=== PATIENT | male | born 1995 | race Caucasian/White ===

== ENCOUNTER 2022-02-13 12:07 | Emergency (ER) | payer OTHER, SELFPAY ==
--- NOTE | 2022-02-13 12:09 | ED.URI ---
HPI - URI/Sore Throat General Chief Complaint: Upper Respiratory Infection Stated Complaint: covid positive, body aches Time Seen by Provider: 02/13/22 12:09 Source: patient and RN notes reviewed History of Present Illness HPI Narrative: Patient is a 26-year-old male who presents the urgent care with complaints of body aches. Patient states that 1 hour ago he tested positive at [employer] for COVID-19. Patient states his symptoms are gotten much better since yesterday and he was first symptomatic on with a sore throat, mild congestion and cough. Patient's not taken anything [id number] for his symptoms. States that he was concerned after reading [employer] about chest pain . Patient states he is having left side pain. Denies of any shortness of breath or difficulty taking a deep breath. Patient has not suffered from any fevers. No other acute complaints. No acute distress noted. Patient aware of the plan of care. Some parts of this dictation were generated by voice recognition software and may contain typographical and/or grammatical inaccuracies. Review of Systems Review of Systems: CONSTITUTIONAL: Denies fever, chills, or sweats. EYES: Denies visual changes, redness, or discharge. ENT: Denies rhinorrhea, congestion, sore throat, or otalgia. CARDIOVASCULAR: Denies chest pain, palpitations, or edema. RESPIRATORY: Denies cough or dyspnea. GASTROINTESTINAL: Denies abdominal pain, nausea, vomiting, or diarrhea. GENITOURINARY: Denies dysuria or hematuria. SKIN: Denies rash or itching. MUSCULOSKELETAL: Reports of body aches and left side pain NEUROLOGIC: Denies headache, numbness, or weakness. All other systems reviewed are negative, except as documented in HPI. PMFSH Comments At the time of my signature, I reviewed and agree with the nursing past medical, surgical, social, and family history. There is no relevant family history pertinent to the patient complaint. Exam Narrative: GENERAL: This is a well-nourished, well-developed patient, appears slightly fatigued HEAD: normocephalic, atraumatic. EYES: PERRL. Sclera clear/white. Vision is grossly intact. EARS: External ears normal, auditory canals clear and without drainage, TMs normal without perforation. Hearing grossly intact. NOSE: External nose normal with no obvious nasal discharge, nares without redness, clear rhinorrhea. THROAT: Mucous membranes moist, mild erythema noted posterior pharynx with moderate postnasal drainage. NECK: Neck supple, non-tender without lymphadenopathy, masses or thyromegaly. CARDIOVASCULAR: Regular rate and rhythm without murmurs, gallops, or rubs. RESPIRATORY: Clear to auscultation. Breath sounds equal bilaterally. No wheezes, rales, or rhonchi. SKIN: warm, intact with no suspicious lesions or rash, good texture and turgor. NEURO: awake, alert, and oriented to person, place and time. There were no obvious focal neurologic abnormalities. EXTREMITIES: No clubbing, cyanosis, or edema. Course Course Level of Care: Express Care Visit Vital Signs Vital signs: Vital Signs Temperature 99 F 02/13/22 12:17 Pulse Rate 82 02/13/22 12:17 Respiratory Rate 16 02/13/22 12:17 Blood Pressure 127/71 02/13/22 12:17 Pulse Oximetry 99 02/13/22 12:17 Temperature 99 F 02/13/22 12:17 Pulse Rate 82 02/13/22 12:17 Respiratory Rate 16 02/13/22 12:17 Blood Pressure 127/71 02/13/22 12:17 Pulse Oximetry 99 02/13/22 12:17 Reviewed MDM - URI/Sore Throat MDM Narrative Medical decision making narrative: Advised the patient to follow quarantine guidelines according to the CDC. Guidelines currently state that you need to quarantine for 5 days. It is inappropriate to leave your home or for any further activity or evaluation unless symptoms progress and need immediate medical attention. Anyone in the home is also considered positive if they are symptomatic and may follow-up at a local outpatient COVID testing site if necessary.
[2022-02-13 12:17] VITALS: BP 127/71; PULSE 82; RESP 16; TEMP 37.2; O2SAT 99
== END 2022-02-13 12:24 | disposition home or self-care (01) ==
PROVIDERS: Emergency Provider Nurse Practitioner Family
DX: U07.1 COVID-19 (principal)
CPT/HCPCS: 99211; G0463

== ENCOUNTER 2022-03-05 15:23 | Emergency (ER) | payer OTHER, SELFPAY ==
[2022-03-05 15:26] VITALS: BP 132/64; PULSE 77; RESP 20; TEMP 37.2; O2SAT 100
--- NOTE | 2022-03-05 15:33 | ED.EAR ---
HPI - Ear Problem General Chief complaint: Ear Stated complaint: FB L EAR Time Seen by Provider: 03/05/22 15:29 Source: patient Mode of arrival: ambulatory Limitations: no limitations History of Present Illness HPI Narrative: Patient presents today complaining of a foreign body to his left ear canal x4 days. Believes there is the tip of a Q-tip in his left ear. Denies any hearing difficulties. Denies pain or drainage. Related Data Home Medications Medication Instructions Recorded Confirmed No Home Medications 02/13/22 03/05/22 Allergies Allergy/AdvReac Type Severity Reaction Status Date / Time amoxicillin Allergy Unknown Verified 03/05/22 15:31 Review of Systems Review of Systems: CONSTITUTIONAL: Denies body aches, fever, chills, or sweats. EYES: Denies visual changes, redness, or discharge. ENT: Denies rhinorrhea, congestion, sore throat, or otalgia.+ Left ear foreign body CARDIOVASCULAR: Denies chest pain, palpitations, or edema. RESPIRATORY: Denies cough or dyspnea. GASTROINTESTINAL: Denies abdominal pain, nausea, vomiting, or diarrhea. GENITOURINARY: Denies dysuria or hematuria. SKIN: Denies rash, itching, or wounds. MUSCULOSKELETAL: Denies back pain, joint pain, or myalgia. NEUROLOGIC: Denies headache, numbness, tingling, or weakness. PSYCH: Denies depression or anxiety. PMFSH Comments At time of signature, I have reviewed and agree with nursing past medical, surgical, social and family history unless otherwise noted. Please see nursing chart for further information. There is no relevant family history pertinent to the presenting complaint Exam Narrative: GENERAL: Well-appearing, well-nourished, and in no acute distress. HEAD: Normocephalic, atraumatic. EYES: EOMI. No redness or drainage. Conjunctivae normal. ENT: Mucous membranes pink and moist. TMs normal bilaterally. No foreign body noted bilaterally. NECK: Normal AROM. CHEST: No respiratory distress. EXTREMITIES: Normal range of motion. No edema. SKIN: Warm, dry, no rash. Capillary refill normal. Normal skin turgor. NEURO: No focal deficits. Alert and oriented x3. Gait steady. PSYCH: Normal affect. No signs of depression or anxiety. Course Course Level of Care: Express Care Visit Vital Signs Vital signs: Vital Signs Temperature 99.0 F 03/05/22 15:26 Pulse Rate 77 03/05/22 15:26 Respiratory Rate 20 03/05/22 15:26 Blood Pressure 132/64 03/05/22 15:26 Pulse Oximetry 100 03/05/22 15:26 Oxygen Delivery Room Air 03/05/22 15:26 Temperature 99.0 F 03/05/22 15:26 Pulse Rate 77 03/05/22 15:26 Respiratory Rate 20 03/05/22 15:26 Blood Pressure 132/64 03/05/22 15:26 Pulse Oximetry 100 03/05/22 15:26 Oxygen Delivery Room Air 03/05/22 15:26 Reviewed. Pt has been instructed to follow up with his PCP regarding his elevated blood pressure today. Medical Decision Making Differential Diagnosis Differential Diagnosis: Foreign body, otitis media, otitis externa, worried well Vital Signs Vital Signs: Vital Signs Temperature 99.0 F 03/05/22 15:26 Pulse Rate 77 03/05/22 15:26 Respiratory Rate 20 03/05/22 15:26 Blood Pressure 132/64 03/05/22 15:26 Pulse Oximetry 100 03/05/22 15:26 Oxygen Delivery Room Air 03/05/22 15:26 Temperature 99.0 F 03/05/22 15:26 Pulse Rate 77 03/05/22 15:26 Respiratory Rate 20 03/05/22 15:26 Blood Pressure 132/64 03/05/22 15:26 Pulse Oximetry 100 03/05/22 15:26 Oxygen Delivery Room Air 03/05/22 15:26 Critical Care Time Critical Care Time Critical Care Time: No Discharge Plan Discharge Clinical Impression: Normal ear exam Patient Disposition: Home, Self-Care Condition: Stable Additional Instructions: No foreign body was noted in your ear today. Your eardrums appear normal as well. Prescriptions: No Action No Home Medications Follow-up/Referrals: PHYSICIAN,LAY BROTHER [Primary Care Provide
== END 2022-03-05 15:45 | disposition home or self-care (01) ==
PROVIDERS: Emergency Provider Nurse Practitioner
DX: Z71.1 Person with feared health complaint in whom no diagnosis is made (principal)
CPT/HCPCS: 99211; 99212; G0463

== ENCOUNTER 2023-05-29 09:50 | Emergency (ER) | payer OTHER, SELFPAY ==
[2023-05-29 09:58] VITALS: BP 117/82; PULSE 74; RESP 20; TEMP 36.4; O2SAT 97
--- NOTE | 2023-05-29 10:07 | ED.URI ---
HPI - URI/Sore Throat General Chief Complaint: Upper Respiratory Infection Stated Complaint: Cough Time Seen by Provider: 05/29/23 10:00 Source: patient Mode of arrival: ambulatory Limitations: no limitations History of Present Illness HPI Narrative: Patient is a 27-year-old male who presents with 3 weeks of productive cough. Patient states it started with cold-like symptoms and everything else has resolved other than the cough. Patient states he has tried everything [id number] with no relief. Denies cough keeping him up at night. Denies any fever, chills,, diarrhea. Does report of congestion intermittently. Related Data Allergies Allergy/AdvReac Type Severity Reaction Status Date / Time amoxicillin Allergy Unknown Verified 05/29/23 09:59 Review of Systems Review of Systems: All systems reviewed & are unremarkable except as noted in HPI and below Constitutional: Constitutional: Denies body ache(s), Denies chills, Denies fatigue, Denies fever(s), Denies headache(s), Denies malaise and Denies weakness Eyes: Eyes: Denies blurry vision, Denies itchy eyes and Denies loss of vision ENT: Denies otalgia, Denies headache(s), Reports nasal congestion, Denies sinus pain and Denies sore throat Cardiovascular: Cardiovascular: Denies chest pain, Denies irregular heart rhythm and Denies dyspnea Respiratory: Respiratory: Reports cough and Denies dyspnea Gastrointestinal: Gastrointestinal: Denies abdominal pain, Denies diarrhea, Denies nausea and Denies vomiting Musculoskeletal: Musculoskeletal: Denies back pain, Denies myalgias and Denies arthralgias Integumentary/Breasts: Skin/Breast: Denies pruritus and Denies rash Neurologic: Denies headache(s), Denies loss of vision and Denies weakness Psychiatric: Psychiatric: Reports no additional psychiatric complaints Endocrine: Endocrine: Denies fatigue Allergic/Immunologic: Allergic/Immunologic: Denies itchy eyes PMFSH Comments At time of signature, agree with nursing past medical, surgical, social and family history. There is no relevant family history pertinent to the presenting complaint. Exam Const: General: cooperative, healthy appearing, comfortable, no acute distress and well nourished Nutritional Appearance: well nourished Orientation/consciousness: patient oriented x3 Limitations: no limitations HENMT: Head: normal to inspection, normocephalic and atraumatic Ears: hearing grossly normal bilaterally, external ears normal, TM's normal bilaterally, EAC's normal and no periauricular adenopathy Face/Nose/Sinus: Normal external nose present, Abnormal mucous membranes and turbinates present erythematous bilateral and diffuse, normal facial exam, sinuses nontender and face symmetric Face and sinus: normal facial exam, sinuses nontender and face symmetric Mouth: Yes Normal oral and palatal mucosa present, Yes lip normal, Yes tongue normal, Yes Normal salivary glands and ducts present, Yes oropharynx normal and Yes moist mucous membranes Teeth and gingiva: dentition normal Throat: posterior oropharynx normal, tonsils normal and uvula midline Eyes: General: appearance normal, both eyes and all related structures Alignment and Position: alignment normal and position normal Periorbital: periorbital findings normal Eyelids: eyelids normal Pupils: Equal, round and reactive pupils present Neck: Neck: normal visual inspection, full ROM, no lymphadenopathy and supple Chest: Chest palpation & inspection: normal inspection of the chest and normal palpation of entire chest wall Resp: Effort & Inspection: normal respiratory effort and able to speak in complete sentences Auscultation: no crackles, no rales, no rhonchi and wheezes scattered wheezes Cardio: Rate: regular rate Rhythm: regular rhythm Heart sounds: S1 normal heart sound present and S2 normal heart sound present GI: Inspection: normal to inspection Skin: General skin exam: normal color and no rashes or lesions noted
== END 2023-05-29 10:13 | disposition home or self-care (01) ==
PROVIDERS: Emergency Provider Nurse Practitioner Family
DX: J40 Bronchitis, not specified as acute or chronic (principal)
CPT/HCPCS: 99213; G0463

== ENCOUNTER 2024-02-02 18:17 | Emergency (ER) | payer OTHER, SELFPAY ==
[2024-02-02 18:25] VITALS: BP 134/74; PULSE 90; RESP 18; TEMP 36.6; O2SAT 100
--- NOTE | 2024-02-02 18:44 | ED.SKABFB ---
HPI - Skin/Abscess/Foreign Bdy General Chief complaint: Skin/Abscess/Foreign Body Stated complaint: Rash Time Seen by Provider: 02/02/24 18:28 Source: patient and RN notes reviewed Mode of arrival: ambulatory Limitations: no limitations History of Present Illness HPI narrative: Patient presents today complaining of a one-week history of rash that started in his low back and bilateral axilla that has now spread to his bilateral flanks and bilateral thighs. It is severely pruritic. States he has been working outside and sweating since onset. No [id number] treatment prior to arrival. Related Data Allergies Allergy/AdvReac Type Severity Reaction Status Date / Time amoxicillin Allergy Hives Verified 02/02/24 18:31 Review of Systems Review of Systems: CONSTITUTIONAL: Denies body aches, fever, chills, or sweats. EYES: Denies visual changes, redness, or discharge. ENT: Denies rhinorrhea, congestion, sore throat, or otalgia. CARDIOVASCULAR: Denies chest pain, palpitations, or edema. RESPIRATORY: Denies cough or dyspnea. GASTROINTESTINAL: Denies abdominal pain, nausea, vomiting, or diarrhea. GENITOURINARY: Denies dysuria or hematuria. SKIN: + pruritic rash MUSCULOSKELETAL: Denies back pain, joint pain, or myalgia. NEUROLOGIC: Denies headache, numbness, tingling, or weakness. PSYCH: Denies depression or anxiety. PMFSH Comments At time of signature, I have reviewed and agree with nursing past medical, surgical, social and family history unless otherwise noted. Please see nursing chart for further information. There is no relevant family history pertinent to the presenting complaint Exam Narrative: GENERAL: Well-appearing, well-nourished, and in no acute distress. HEAD: Normocephalic, atraumatic. EYES: EOMI. No redness or drainage. Conjunctivae normal. ENT: Mucous membranes pink and moist. NECK: Normal AROM. CHEST: No respiratory distress. EXTREMITIES: Normal range of motion. No edema. SKIN: Warm, dry. Capillary refill normal. Normal skin turgor. Patient has widespread erythematous rash that is made of tiny circular areas that are, in areas, scaling. these small lesions have coalesced into larger lesions in the bilateral anterior upper arms and flanks. This rash is widespread over the bilateral upper arms, axilla area, bilateral flanks, lower abdomen, and low back, bilateral anterior thighs. No drainage, induration noted. NEURO: No focal deficits. Alert and oriented x3. Gait steady. PSYCH: Normal affect. No signs of depression or anxiety. Course Course Level of Care: Express Care Visit Vital Signs Vital signs: Vital Signs Temperature 97.8 F 02/02/24 18:25 Pulse Rate 90 02/02/24 18:25 Respiratory Rate 18 02/02/24 18:25 Blood Pressure 134/74 02/02/24 18:25 Pulse Oximetry 100 02/02/24 18:25 Oxygen Delivery Room Air 02/02/24 18:25 Temperature 97.8 F 02/02/24 18:25 Pulse Rate 90 02/02/24 18:25 Respiratory Rate 18 02/02/24 18:25 Blood Pressure 134/74 02/02/24 18:25 Pulse Oximetry 100 02/02/24 18:25 Oxygen Delivery Room Air 02/02/24 18:25 Reviewed MDM - Skin/Abscess/Foreign Bdy MDM Narrative Medical decision making narrative: Lesions appear to be fungal in etiology. Will treat with a course of terbinafine due to widespread nature. Patient has been instructed to follow-up with his PCP after a week if symptoms are not improving. Anticipatory guidance given. Differential Diagnosis Differential diagnosis: Likely viral exanthem, dermatophytosis, urticaria, cellulitis, eczema, impetigo and contact dermatitis Critical Care Time Critical Care Time Critical Care Time: No Discharge Plan Discharge Clinical Impression: Tinea corporis Patient Disposition: Home, Self-Care Condition: Stable Instructions: Tinea Corporis (ED) Additional Instructions: Please take the terbinafine as directed. Try to stay as cool as possible. Change clothes frequently wh
== END 2024-02-02 18:42 | disposition home or self-care (01) ==
PROVIDERS: Emergency Provider Nurse Practitioner; PCP Family Medicine Sports Medicine
DX: B35.4 Tinea corporis (principal)
CPT/HCPCS: 99213; G0463

== ENCOUNTER 2025-03-31 13:46 | Emergency (ER) | payer OTHER, SELFPAY ==
[2025-03-31 13:51] VITALS: BP 123/76; PULSE 73; RESP 16; TEMP 36.7; O2SAT 99
--- NOTE | 2025-03-31 13:57 | ED_ITS ---
HPI - Skin/Abscess/Foreign Bdy General Chief complaint: Skin/Abscess/Foreign Body Stated complaint: Rash Time Seen by Provider: 03/31/25 13:57 Source: patient Mode of arrival: ambulatory Limitations: no limitations History of Present Illness HPI narrative: 29-year-old male presented for complaint of an itchy red rash for 3 days. Says it has been spreading from the right eye to the right forehead, right forearm, left side of the neck, and groin. Denies exposure to the outside in the past month. Denies lip, tongue, or throat swelling, shortness of breath or wheezing. Denies changes to soap, detergent, lotion, or any other exposures. No one else in the house or any contacts with similar symptoms. Applied aquaphor and took an antihistamine. Related Data Allergies Allergy/AdvReac Type Severity Reaction Status Date / Time amoxicillin Allergy Hives Verified 03/31/25 13:54 Review of Systems Review of Systems: CONSTITUTIONAL: Denies body aches, fever, chills, or sweats. EYES: Denies visual changes, redness, or discharge. ENT: Denies rhinorrhea, congestion CARDIOVASCULAR: Denies chest pain, palpitations, or edema. RESPIRATORY: Denies cough or dyspnea. GASTROINTESTINAL: Denies abdominal pain, nausea, vomiting, or diarrhea. SKIN: per HPI MUSCULOSKELETAL: Denies back pain, joint pain, or myalgia. NEUROLOGIC: Denies headache, numbness, tingling, or weakness. PMFSH Comments At time of signature, I have reviewed and agree with nursing past medical, surgical, social and family history unless otherwise noted. Please see nursing chart for further information. There is no relevant family history pertinent to the presenting complaint Exam Narrative: GENERAL: Well-appearing HEAD: Normocephalic, atraumatic. EYES: conjunctivae clear, and EOMI. ENT: Mucous membranes moist. Oropharynx without edema, erythema or lesions. NECK: Supple. No lymphadenopathy CHEST: Clear to auscultation. HEART: Regular rate and rhythm. SKIN: Warm, dry. Scattered areas of vesicles on erythematous base noted to right lateral eye, right forehead, right wrist, and left neck appears c/w con tact dermatitis NEURO: Alert and oriented x3. Course Course Emergency Course: Patient is aware of diagnosis, understands and agrees to treatment plan. Anticipatory guidance given. Patient agrees to follow-up as directed and is aware of reasons to seek care at the emergency department. Portions of this record may have been created with voice recognition software Level of Care: Express Care Visit Vital Signs Vital signs: Vital Signs Temperature 98.1 F 03/31/25 13:51 Pulse Rate 73 03/31/25 13:51 Respiratory Rate 16 03/31/25 13:51 Blood Pressure 123/76 03/31/25 13:51 Pulse Oximetry 99 03/31/25 13:51 Oxygen Delivery Room Air 03/31/25 13:51 Temperature 98.1 F 03/31/25 13:51 Pulse Rate 73 03/31/25 13:51 Respiratory Rate 16 03/31/25 13:51 Blood Pressure 123/76 03/31/25 13:51 Pulse Oximetry 99 03/31/25 13:51 Oxygen Delivery Room Air 03/31/25 13:51 Reviewed MDM - Skin/Abscess/Foreign Bdy MDM Narrative Medical decision making narrative: Discussed physical exam findings. Advised supportive measures and signs/symptoms to go to the ER. Pt is appropriate for outpt treatment and f/u. Instructed patient to go to nearest ER immediately for any worsening symptoms including but not limited to: fever, spreading rash, pain, sore throat, headache, dizziness, chest pain, trouble breathing, or any symptoms concerning to the patient. Differential Diagnosis Differential diagnosis: Likely abscess of skin or subcutaneous tissue, viral exanthem, dermatophytosis, urticaria, herpes zoster, cellulitis, eczema, insect bites, impetigo and contact dermatitis Discharge Plan Discharge Clinical Impression: Contact dermatitis Patient Disposition: Home Condition: Stable Instructions: Antibiotic Form, Poison Gloria (ED) Additional Instructions: Take steroids as directed. Zyrtec or Benadryl according to package directions as needed for itching Ok to apply Benadryl cream, calamine lotion or Gloria Dry to the areas, avoiding the eye area. Cool compresses to the sites of itching, avoid hot water. Avoid scratching to reduce the risk of infection Follow up with your primary care provider as needed in 1 week Go to the ER for worsening symptoms or concerns (lip, tongue, throat swelling/itching, trouble breathing etc) Patient Language: Welsh Prescriptions: New prednisone 20 mg tablet 20 mg PO DAILY Qty: 18 0RF Rx Instructions: take 3 tablets daily for 3 days, then 2 tablets daily for 3 days then 1 tablet daily for 3 days Follow-up/Referrals: PHYSICIAN,FRAME STRAIGHTENER [Primary Care Provider] - Time of Disposition: 14:07
== END 2025-03-31 14:09 | disposition home or self-care (01) ==
PROVIDERS: Emergency Provider Nurse Practitioner Family
DX: L25.9 Unspecified contact dermatitis, unspecified cause (principal)
CPT/HCPCS: 99213; G0463